=== PATIENT | male | born 1990 | race Caucasian/White ===

== ENCOUNTER 2022-10-03 13:06 | Emergency (ER) | payer OTHER ==
[~2022-10-03] VITALS: Ht 195.6 cm; Wt 168.2 kg
[2022-10-03] MEDS ORDERED: PROPOFOL 10 MG/ML 20 ML IV ONE ×2 (14:00→15:48)
[2022-10-03] MEDS ORDERED: KETAMINE 50mg/ML 10ml Vial (500mg/10ml) IV ONE (14:00)
[2022-10-03] MEDS: KETOROLAC TROMETH 30 MG/ML 1ML VIAL IV ONE ×2 (18:21→18:40)
[2022-10-03] MEDS ORDERED: HYDR-4798 PO (18:59)
[2022-10-03 19:03] VITALS: BP 131/77
== END 2022-10-03 19:10 | disposition home or self-care (01) ==
LOC: EDBD 13:06 → ER 13:06
DX: S52.592A Other fractures of lower end of left radius, initial encounter for closed fracture (principal); Z88.0 Allergy status to penicillin; Z98.890 Other specified postprocedural states; X58.XXXA Exposure to other specified factors, initial encounter; Y93.23 Activity, snow (alpine) (downhill) skiing, snowboarding, sledding, tobogganing and snow tubing; Y92.89 Other specified places as the place of occurrence of the external cause; Y99.8 Other external cause status
CPT/HCPCS: 25605; 73090; 73110; 96374; 99152; 99285; J1885; J2704